=== PATIENT | female | born 1995 | race Caucasian/White ===

== ENCOUNTER 2016-05-27 22:11 | Emergency (ER) | payer OTHER ==
[2016-05-27] MEDS ORDERED: METOCLOPRAMIDE INJ 10MG/2ML VIAL (J2765) As Ordered ONE (23:27)
[2016-05-27 23:35] LABS: BASO # 0.1 K/mm3 (0.0-0.2); BASO % 0.5 % (0.0-1.0); EOS % 0.4 % (0.0-3.0); LARGE UNSTAINED CELL # 0.1 K/mm3 (0.0-0.4); LARGE UNSTAINED CELL % 0.8 % (0.0-4.0); LYMPH # 1.5 K/mm3 (1.5-6.5); LYMPH % 11.2 % (24.0-44.0); MEAN CORPUSCULAR HEMOGLOBIN 30.2 pg (27.0-33.0); MEAN CORPUSCULAR HGB CONC 34.9 g/dl (32.0-36.5); MEAN CORPUSCULAR VOLUME 86.4 fl (80.0-96.0); MONO # 0.3 K/mm3 (0.0-0.8); MONO % 2.5 % (0.0-5.0); NEUTROPHILS # 10.5 K/mm3 (1.8-7.7); NEUTROPHILS % 84.6 % (36.0-66.0); PLATELET COUNT, AUTOMATED 257 k/mm3 (150-450); RED CELL DISTRIBUTION WIDTH 12.5 % (11.5-14.5); WHITE BLOOD COUNT 12.4 K/mm3 (4.0-10.0)
[2016-05-28] LABS: ANION GAP 10 MEQ/L (8-16); BLOOD UREA NITROGEN 8 MG/DL (7-18); CARBON DIOXIDE LEVEL 23 MEQ/L (21-32); CHLORIDE LEVEL 107 MEQ/L (98-107); CREATININE FOR GFR 0.51 MG/DL (0.55-1.02); GLOMERULAR FILTRATION RATE > 60.0 (>60); GLUCOSE, FASTING 105 MG/DL (70-105); POTASSIUM SERUM 3.8 MEQ/L (3.5-5.1); SODIUM LEVEL 140 MEQ/L (136-145)
--- NOTE | 2016-05-28 01:19 | EDDOCDS ---
Nurse's Notes [facility] Name: Effie Knox Age: 20 yrs Sex: Female : 1995 Arrival Date: 05/27/2016 Time: 22:11 Bed I6 / 28 Private MD: NO PRIMARY PHYSICIAN, . Diagnosis: Headache;Vomiting of , unspecified Presentation: 05/27 22:14 Presenting complaint: Patient states: she has had a headache since 1900 tonight pt cz denies history of same. headache causing nausea and vomiting. pt is 12 weeks . This patient has no additional risk factors. Adult Sepsis Screening: The patient does not have new or worsening altered mentation. Patient's respiratory rate is less than 22. Systolic blood pressure is greater than 100. Patient has a qSOFA score of 0- Negative Sepsis Screen. Suicide/Homicide risk assessment- the patient denies having any suicidal and/or homicidal ideations and does not present with any other emotional, behavioral or mental health complaints. Status: The patient is a dependent. Transition of care: patient was not received from another setting of care. 22:14 Acuity: YOLANDA Level 3 cz 22:14 Method Of Arrival: Walkin/Carried/Asstd cz Triage Assessment: 22:16 Headache History: This patient does not have a history of previous headaches. General: cz Appears uncomfortable. Pain: Pain currently is 9 out of 10 on a pain scale. Pt Declines HIV testing. 22:18 Pain: Pain began 3 hours ago Also complains of nausea, vomiting. cz DENTAL SERVICE CHIEF: 22:16 LMP 03/03/2016, Verified, EDC 12/08/2016, Gestational age from LMP: 12 weeks 2 cz days Historical: - Allergies: No known drug Allergies; - Home Meds: 1. none - PMHx: none; - PSHx: wisdom teeth extraction; - Social history: Smoking status: Patient states was never smoker of tobacco. No barriers to communication noted, The patient speaks fluent Bhutanese, Speaks appropriately for age. - Family history: Not pertinent. - : The pt / caregiver states he / she is not on anticoagulants. Home medication list is obtained from the patient. - Exposure Risk Screening:: None identified. Screenin/04 01:17 Screening information is obtained from the patient. Fall risk: No risks identified. ead Assistance ADL's: requires no assistance with activities of daily living. Abuse/DV Screen: The patient / caregiver reports he/she is: not in a situation that causes fear, pain or injury. Nutritional screening: No deficits noted. Advance Directives: Currently, there is no health care proxy. There is no Power of Medication Technician. home support is adequate. Assessment: 05/27 23:30 General: Appears in no apparent distress, comfortable, Behavior is appropriate for age, ead cooperative. Pain: Location: face and scalp Pain currently is 4 out of 10 on a pain scale. At worst was 9 out of 10 on a pain scale. Neurological: Level of Consciousness is awake, alert, Oriented to person, place, time, Reports headache. Respiratory: Airway is patent Respiratory effort is even, unlabored. GI: Abdomen is non- distended Reports nausea, vomiting. Derm: Skin is pink, warm & dry. 05/28 00:36 General: Pt returned from ultrasound, IV fluids infusing. . ead 01:18 General: Appears in no apparent distress, comfortable, Behavior is appropriate for age, ead cooperative. Neurological: No deficits noted. Respiratory: Airway is patent Respiratory effort is even, unlabored, Respiratory pattern is regular, symmetrical. GI: Reports tolerance of fluids, Denies nausea, vomiting, pain. Derm: Skin is pink, warm & dry. Vital Signs: 05/27 22:12 BP 114 / 68; Pulse 85; Resp 18 S; Temp 96.9(O); Pulse Ox 98% on R/A; Weight 70.76 kg gr2 (R); Height 5 ft. 4 in. (162.56 cm) (R); Pain 6/10; 05/28 01:17 BP 109 / 58; Pulse 76; Resp 16; Temp 97.8(O); Pulse Ox 100% on R/A; Pain 0/10; ead 05/27 22:12 Body Mass Index 26.78 (70.76 kg, 162.56 cm) gr2 Vitals: 05/27 22:12 Log In Time: May 27, 2016 at 22:12. gr2 23:45 Heart Tones Unable to obtain Note pt states she is 10 weeks . unable to ead obtain heart tones. provider notified, order for ultrasound received. ED Course: 22:12 Patient visited by Morena Wilson. gr2 22:12 NO PRIMARY PHYSICIAN, . is Private Physician. gr2 22:12 Patient moved to Waiting gr2 22:13 Patient visited by Morena Wilson. gr2 22:13 Patient moved to Pre RCE gr2 22:16 Triage Initiated cz 22:50 Patient moved to Triage 1 ar3 23:01 Krishna Sales RPA-C is PHCP. ck7 23:02 Romario Lemus MD is Attending Physician. ck7 23:02 Patient visited by Krishna Sales RPA-C. ck7 23:06 Patient moved to I lf1 23:30 Inserted peripheral IV: 20gauge IV in right antecubital area and blood collected. ead Patient tolerated the procedure well. initiated by Laila Joseph RN. 23:34 UA Sent. ead 23:34 MED Profile Sent. ead 23:34 CBC with Diff Sent. ead 23:42 Patient visited by Krishna Sales RPA-C. ck7 23:45 The patient / caregiver is instructed regarding the plan of care and ED course. Patient ead has correct armband on for positive identification. Placed in gown. Bed in low position. Call light in reach. Side rails up X 1. 05/28 00:11 [facility] Payment Agreement was scanned into [employer] and attached to record. jp5 00:13 Patient visited by Krishna Sales RPA-C. ck7 00:22 Patient name changed from Effie\S\\S\Abilio\S\ to Effie\S\Yue\S\Abilio. EDMS 00:25 Patient moved to Ultrasound dmg 00:36 Patient moved to I ead 00:51 Patient visited by Krishna Sales RPA-C. ck7 00:58 Vasile Gomez MD is Referral Physician. ck7 01:17 Discontinued IV intact, bleeding controlled, pressure dressing applied, No ead redness/swelling at site. No procedures done that require assistance. Administered Medications: 05/27 23:34 Drug: NS 0.9% 1000 ml [sodium chloride 0.9 % injection solution] Route: IV; Rate: ead bolus; Site: right antecubital; 05/28 01:00 Follow up: IV Status: Completed infusion; IV Intake: 1000ml ead 05/27 23:34 Drug: Metoclopramide 10 mg [metoclopramide 5 mg/mL injection solution] Route: IV; Rate: ead 40 mg/hr; Infused Over: 15 mins; Site: right antecubital; 23:58 Follow up: Response: No Adverse Reaction; Pain is decreased; IV Status: Completed ead infusion Intake: 05/28 01:00 IV: 1000.00ml; Total: 1000.00ml. ead Order Results: Lab Order: CBC with Diff; SPEC'M 05/27/16 23:25 Test: WHITE BLOOD COUNT; Value: 12.4; Range: 4.0-10.0; Abnormal: Above high normal; Units: K/mm3; Status: F Test: RED BLOOD COUNT; Value: 4.51; Range: 4.00-5.40; Units: M/mm3; Status: F Test: HEMOGLOBIN; Value: 13.6; Range: 12.0-16.0; Units: g/dl; Status: F Test: HEMATOCRIT; Value: 38.9; Range: 36.0-47.0; Units: %; Status: F Test: MEAN CORPUSCULAR VOLUME; Value: 86.4; Range: 80.0-96.0; Units: fl; Status: F Test: MEAN CORPUSCULAR HEMOGLOBIN; Value: 30.2; Range: 27.0-33.0; Units: pg; Status: F Test: MEAN CORPUSCULAR HGB CONC; Value: 34.9; Range: 32.0-36.5; Units: g/dl; Status: F Test: RED CELL DISTRIBUTION WIDTH; Value: 12.5; Range: 11.5-14.5; Units: %; Status: F Test: PLATELET COUNT, AUTOMATED; Value: 257; Range: 150-450; Units: k/mm3; Status: F Test: NEUTROPHILS %; Value: 84.6; Range: 36.0-66.0; Abnormal: Above high normal; Units: %; Status: F Test: LYMPH %; Value: 11.2; Range: 24.0-44.0; Abnormal: Below low normal; Units: %; Status: F Test: MONO %; Value: 2.5; Range: 0.0-5.0; Units: %; Status: F Test: EOS %; Value: 0.4; Range: 0.0-3.0; Units: %; Status: F Test: BASO %; Value: 0.5; Range: 0.0-1.0; Units: %; Status: F Test: LARGE UNSTAINED CELL %; Value: 0.8; Range: 0.0-4.0; Units: %; Status: F Test: NEUTROPHILS #; Value: 10.5; Range: 1.8-7.7; Abnormal: Above high normal; Units: K/mm3; Status: F Test: LYMPH #; Value: 1.5; Range: 1.5-6.5; Units: K/mm3; Status: F Test: MONO #; Value: 0.3; Range: 0.0-0.8; Units: K/mm3; Status: F Test: EOS #; Value: 0.0; Range: 0.0-0.50; Units: K/mm3; Status: F Test: BASO #; Value: 0.1; Range: 0.0-0.2; Units: K/mm3; Status: F Test: LARGE UNSTAINED CELL #; Value: 0.1; Range: 0.0-0.4; Units: K/mm3; Status: F Lab Order: [facility]; [facility] 05/27/16 23:25 Test: GLUCOSE, FASTING; Value: 105; Range: 70-105; Units: MG/DL; Status: F Test: BLOOD UREA NITROGEN; Value: 8; Range: 7-18; Units: MG/DL; Status: F Test: CREATININE FOR GFR; Value: 0.51; Range: 0.55-1.02; Abnormal: Below low normal; Units: MG/DL; Status: F Test: GLOMERULAR FILTRATION RATE; Value: > 60.0; Range: >60; Status: F Test: SODIUM LEVEL; Value: 140; Range: 136-145; Units: MEQ/L; Status: F Test: POTASSIUM SERUM; Value: 3.8; Range: 3.5-5.1; Units: MEQ/L; Status: F Test: CHLORIDE LEVEL; Value: 107; Range: 98-107; Units: MEQ/L; Status: F Test: CARBON DIOXIDE LEVEL; Value: 23; Range: 21-32; Units: MEQ/L; Status: F Test: ANION GAP; Value: 10; Range: 8-16; Units: MEQ/L; Status: F Test: CALCIUM LEVEL; Value: 9.0; Range: 8.5-10.1; Units: MG/DL; Status: F Test Note: ; Units are mL/min/1.73 m2 Chronic Kidney Disease Staging per NKF: Stage I & II GFR >=60 Normal to Mildly Decreased Stage III GFR 30-59 Moderately Decreased Stage IV GFR 15-29 Severely Decreased Stage V GFR <15 Very Little GFR Left ESRD GFR <15 on DAY CARE ATTENDANT Lab Order: UA; SPEC'M 05/27/16 23:25 Test: APPEARANCE, URINE; Value: HAZY; Range: CLEAR; Status: F Test: COLOR, URINE; Value: YELLOW; Range: YELLOW; Status: F Test: PH,URINE; Value: 6.0; Range: 5.0-9.0; Units: UNITS; Status: F Test: SPECIFIC GRAVITY URINE AUTO; Value: 1.009; Range: 1.002-1.035; Status: F Test: PROTEIN, URINE AUTO; Value: NEGATIVE; Range: NEGATIVE; Units: mg/dL; Status: F Test: GLUCOSE, URINE (UA) AUTO; Value: NEGATIVE; Range: NEGATIVE; Units: mg/dL; Status: F Test: KETONE, URINE AUTO; Value: 1+; Range: NEGATIVE; Abnormal: Above high normal; Units: mg/dL; Status: F Test: UROBILINOGEN, URINE AUTO; Value: 0.2; Range: 0.0-2.0; Units: mg/dL; Status: F Test: BILIRUBIN, URINE AUTO; Value: NEGATIVE; Range: NEGATIVE; Status: F Test: NITRITE, URINE AUTO; Value: NEGATIVE; Range: NEGATIVE; Status: F Test: LEUKOCYTE ESTERASE, URINE AUTO; Value: 1+; Range: NEGATIVE; Abnormal: Above high normal; Status: F Test: BLOOD, URINE BLOOD; Value: NEGATIVE; Range: NEGATIVE; Status: F Test: WBC, URINE AUTO; Value: 3; Range: 0-3; Units: /HPF; Status: F Test: RBC, URINE AUTO; Value: 3; Range: 0-3; Units: /HPF; Status: F Test: BACTERIA, URINE AUTO; Value: 1+; Range: NEGATIVE; Abnormal: Above high normal; Status: F Test: SQUAMOUS EPITHELIAL CELL UR AU; Value: 7; Range: 0-6; Units: /HPF; Status: F Test: MUCUS, URINE; Value: SMALL; Range: NEGATIVE; Status: F Test: HYALINE CAST, URINE AUTO; Value: 0; Range: 0-1; Units: /LPF; Status: F Outcome: 00:58 Discharge ordered by Provider. ck7 01:19 Patient left the ED. robert Signatures: Dispatcher [employer] EDMS Quan Jaramillo RN RN Paz Goodwin LisaRN RN lf1 Tona Méndez, INSTRUMENT AND CONTROLS TECHNICIAN INSTRUMENT AND CONTROLS TECHNICIAN ar3 Krishna Sales, RPA-C RPA-Cck7 Morena Wilson gr2 [place] SongRN RN Wale Arreola jp5 Corrections: (The following items were deleted from the chart) 05/27 22:19 22:14 Presenting complaint: Patient states: she has had a headache since 1900 tonight cz pt denies history of same. headache causing nausea and vomiting cz 22:20 22:14 Presenting complaint: Patient states: she has had a headache since 1900 tonight cz pt denies history of same. headache causing nausea and vomiting. pt is cz MTDD
--- NOTE | 2016-05-28 01:19 | EDDOCDS ---
Physician Documentation [facility] Name: Effie Knox Age: 20 yrs Sex: Female : 1995 Arrival Date: 05/27/2016 Time: 22:11 Bed I6 Private MD: NO PRIMARY PHYSICIAN, . Disposition: 05/28/16 00:58 Discharged to Home/Self Care. Impression: Headache, Vomiting of , unspecified. - Condition is Stable. - Discharge Instructions: General Headache Without Cause, Hyperemesis Gravidarum. - Prescriptions for Reglan 10 mg Oral Tablet - take 1 tablet by ORAL route every 6 hours take 30 minutes before meals and at bedtime; 20 tablet. - Medication Reconciliation, Local Pharmacy Hours form. - Follow up: Vasile Gomez MD; When: Tomorrow; Reason: Recheck today's complaints, Continuance of care. - Problem is new. - Symptoms have improved. - Notes: USE REGLAN INSTRUCTED, FOLLOW UP WITH YOUR DOCTOR TOMORROW, RETURN TO THE ER IF THE SYMPTOMS WORSEN OR BECOME CONCERNING, YOU MAY ALSO USE TYLENOL FOR PAIN CONTROL Historical: - Allergies: No known drug Allergies; - Home Meds: 1. none - PMHx: none; - PSHx: wisdom teeth extraction; - Social history: Smoking status: Patient states was never smoker of tobacco. No barriers to communication noted, The patient speaks fluent Czech, Speaks appropriately for age. - Family history: Not pertinent. - : The pt / caregiver states he / she is not on anticoagulants. Home medication list is obtained from the patient. - Exposure Risk Screening:: None identified. RELATIONS MGR: 05/27 22:16 LMP 03/03/2016, Verified, EDC 12/08/2016, Gestational age from LMP: 12 weeks 2 cz days Vital Signs: 22:12 BP 114 / 68; Pulse 85; Resp 18 S; Temp 96.9(O); Pulse Ox 98% on R/A; Weight 70.76 kg / gr2 156 lbs (R); Height 5 ft. 4 in. (162.56 cm) (R); Pain 6/10; 05/28 01:17 BP 109 / 58; Pulse 76; Resp 16; Temp 97.8(O); Pulse Ox 100% on R/A; Pain 0/10; ead 05/27 22:12 Body Mass Index 26.78 (70.76 kg, 162.56 cm) gr2 MDM: 05/27 23:05 Heart Tones ordered. ck7 23:05 IV Saline Lock ordered. ck7 23:05 NS 0.9% 1000 ml IV at bolus once ordered. ck7 23:05 Metoclopramide 10 mg IV at 40 mg/hr once over 15 mins ordered. ck7 23:06 CBC with Diff Ordered. EDMS 23:06 MED Profile Ordered. EDMS 23:06 UA Ordered. EDMS 23:42 CBC with Diff Reviewed. ck7 23:43 US 1st trimester Ordered. EDMS 05/28 00:11 [facility] Payment Agreement was scanned into [employer] and attached to record. jp5 00:11 Financial registration complete. jp5 00:20 MED Profile Reviewed. ck7 00:20 UA Reviewed. ck7 Administered Medications: 05/27 23:34 Drug: NS 0.9% 1000 ml [sodium chloride 0.9 % injection solution] Route: IV; Rate: ead bolus; Site: right antecubital; 05/28 01:00 Follow up: IV Status: Completed infusion; IV Intake: 1000ml ead 05/27 23:34 Drug: Metoclopramide 10 mg [metoclopramide 5 mg/mL injection solution] Route: IV; Rate: ead 40 mg/hr; Infused Over: 15 mins; Site: right antecubital; 23:58 Follow up: Response: No Adverse Reaction; Pain is decreased; IV Status: Completed ead infusion Signatures: Dispatcher [employer] EDAL Quan Jaramillo RN RN cz Kwaczala, Christopher, RPA-C RPA-Cck7 [place] SongRN Wale Chowdary jp5 The chart was reviewed and I authenticate all verbal orders and agree with the evaluation and treatment provided.Attachments: 05/28 00:11 [facility] Payment Agreement jp5 MTDD
--- NOTE | 2016-05-28 02:10 | REPUSA ---
CLINICAL HISTORY: determination. TECHNIQUE: Transabdominal ultrasound of the pelvis was performed. FINDINGS: Single, live intrauterine gestation. The estimated gestation age is 11 weeks and 6 days. [place]-rump length measures 5.1 mm. heart rate 163 beats a minute. No maternal adnexal pathology. IMPRESSION: Single, live intrauterine gestation. No abnormality.
--- NOTE | 2016-05-30 02:20 | EDDOCDS ---
Nurse's Notes [facility] Name: Effie Knox Age: 20 yrs Sex: Female : 1995 Arrival Date: 05/27/2016 Time: 22:11 Bed I6 / 28 Private MD: NO PRIMARY PHYSICIAN, . Diagnosis: Headache;Vomiting of , unspecified Presentation: 05/27 22:14 Presenting complaint: Patient states: she has had a headache since 1900 tonight pt cz denies history of same. headache causing nausea and vomiting. pt is 12 weeks . This patient has no additional risk factors. Adult Sepsis Screening: The patient does not have new or worsening altered mentation. Patient's respiratory rate is less than 22. Systolic blood pressure is greater than 100. Patient has a qSOFA score of 0- Negative Sepsis Screen. Suicide/Homicide risk assessment- the patient denies having any suicidal and/or homicidal ideations and does not present with any other emotional, behavioral or mental health complaints. Status: The patient is a dependent. Transition of care: patient was not received from another setting of care. 22:14 Acuity: YOLANDA Level 3 cz 22:14 Method Of Arrival: Walkin/Carried/Asstd cz Triage Assessment: 22:16 Headache History: This patient does not have a history of previous headaches. General: cz Appears uncomfortable. Pain: Pain currently is 9 out of 10 on a pain scale. Pt Declines HIV testing. 22:18 Pain: Pain began 3 hours ago Also complains of nausea, vomiting. 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 none - PMHx: none; - PSHx: wisdom teeth extraction; - Social history: Smoking status: Patient states was never smoker of tobacco. No barriers to communication noted, The patient speaks fluent Cuban, Speaks appropriately for age. - Family history: Not pertinent. - : The pt / caregiver states he / she is not on anticoagulants. Home medication list is obtained from the patient. - Exposure Risk Screening:: None identified. Screenin/04 01:17 Screening information is obtained from the patient. Fall risk: No risks identified. ead Assistance ADL's: requires no assistance with activities of daily living. Abuse/DV Screen: The patient / caregiver reports he/she is: not in a situation that causes fear, pain or injury. Nutritional screening: No deficits noted. Advance Directives: Currently, there is no health care proxy. There is no Power of Long Term Care Administrator. home support is adequate. Assessment: 05/27 23:30 General: Appears in no apparent distress, comfortable, Behavior is appropriate for age, ead cooperative. Pain: Location: face and scalp Pain currently is 4 out of 10 on a pain scale. At worst was 9 out of 10 on a pain scale. Neurological: Level of Consciousness is awake, alert, Oriented to person, place, time, Reports headache. Respiratory: Airway is patent Respiratory effort is even, unlabored. GI: Abdomen is non- distended Reports nausea, vomiting. Derm: Skin is pink, warm & dry. 05/28 00:36 General: Pt returned from ultrasound, IV fluids infusing. . ead 01:18 General: Appears in no apparent distress, comfortable, Behavior is appropriate for age, ead cooperative. Neurological: No deficits noted. Respiratory: Airway is patent Respiratory effort is even, unlabored, Respiratory pattern is regular, symmetrical. GI: Reports tolerance of fluids, Denies nausea, vomiting, pain. Derm: Skin is pink, warm & dry. Vital Signs: 05/27 22:12 BP 114 / 68; Pulse 85; Resp 18 S; Temp 96.9(O); Pulse Ox 98% on R/A; Weight 70.76 kg gr2 (R); Height 5 ft. 4 in. (162.56 cm) (R); Pain 6/10; 05/28 01:17 BP 109 / 58; Pulse 76; Resp 16; Temp 97.8(O); Pulse Ox 100% on R/A; Pain 0/10; ead 05/27 22:12 Body Mass Index 26.78 (70.76 kg, 162.56 cm) gr2 Vitals: 05/27 22:12 Log In Time: May 27, 2016 at 22:12. gr2 23:45 Heart Tones Unable to obtain Note pt states she is 10 weeks . unable to ead obtain heart tones. provider notified, order for ultrasound received. ED Course: 22:12 Patient visited by Morena Wilson. gr2 22:12 NO PRIMARY PHYSICIAN, . is Private Physician. gr2 22:12 Patient moved to Waiting gr2 22:13 Patient visited by Morena Wilson. gr2 22:13 Patient moved to Pre RCE gr2 22:16 Triage Initiated cz 22:50 Patient moved to Triage 1 ar3 23:01 Krishna Sales RPA-C is PHCP. ck7 23:02 Romario Lemus MD is Attending Physician. ck7 23:02 Patient visited by Krishna Sales RPA-C. ck7 23:06 Patient moved to lf1 23:30 Inserted peripheral IV: 20gauge IV in right antecubital area and blood collected. ead Patient tolerated the procedure well. initiated by Laila Joseph RN. 23:34 UA Sent. ead 23:34 MED Profile Sent. ead 23:34 CBC with Diff Sent. ead 23:42 Patient visited by Krishna Sales RPA-C. ck7 23:45 The patient / caregiver is instructed regarding the plan of care and ED course. Patient ead has correct armband on for positive identification. Placed in gown. Bed in low position. Call light in reach. Side rails up X 1. 05/28 00:11 [facility] Payment Agreement was scanned into [employer] and attached to record. jp5 00:13 Patient visited by Krishan Sales RPA-C. ck7 00:22 Patient name changed from Effie\S\\S\Abilio\S\ to Effie\S\Yue\S\Abilio. EDMS 00:25 Patient moved to Ultrasound dmg 00:36 Patient moved to ead 00:51 Patient visited by Krishna Sales RPA-C. ck7 00:58 Vasile Gomez MD is Referral Physician. ck7 01:17 Discontinued IV intact, bleeding controlled, pressure dressing applied, No ead redness/swelling at site. No procedures done that require assistance. 02:39 US 1st trimester Returned. EDMS 11:05 T-Sheet-- Draft Copy was scanned into [employer] and attached to record. gb Administered Medications: 05/27 23:34 Drug: NS 0.9% 1000 ml [sodium chloride 0.9 % injection solution] Route: IV; Rate: ead bolus; Site: right antecubital; 05/28 01:00 Follow up: IV Status: Completed infusion; IV Intake: 1000ml ead 05/27 23:34 Drug: Metoclopramide 10 mg [metoclopramide 5 mg/mL injection solution] Route: IV; Rate: ead 40 mg/hr; Infused Over: 15 mins; Site: right antecubital; 23:58 Follow up: Response: No Adverse Reaction; Pain is decreased; IV Status: Completed ead infusion Intake: 05/28 01:00 IV: 1000.00ml; Total: 1000.00ml. ead Order Results: Lab Order: CBC with Diff; SPEC'M 05/27/16 23:25 Test: WHITE BLOOD COUNT; Value: 12.4; Range: 4.0-10.0; Abnormal: Above high normal; Units: K/mm3; Status: F Test: RED BLOOD COUNT; Value: 4.51; Range: 4.00-5.40; Units: M/mm3; Status: F Test: HEMOGLOBIN; Value: 13.6; Range: 12.0-16.0; Units: g/dl; Status: F Test: HEMATOCRIT; Value: 38.9; Range: 36.0-47.0; Units: %; Status: F Test: MEAN CORPUSCULAR VOLUME; Value: 86.4; Range: 80.0-96.0; Units: fl; Status: F Test: MEAN CORPUSCULAR HEMOGLOBIN; Value: 30.2; Range: 27.0-33.0; Units: pg; Status: F Test: MEAN CORPUSCULAR HGB CONC; Value: 34.9; Range: 32.0-36.5; Units: g/dl; Status: F Test: RED CELL DISTRIBUTION WIDTH; Value: 12.5; Range: 11.5-14.5; Units: %; Status: F Test: PLATELET COUNT, AUTOMATED; Value: 257; Range: 150-450; Units: k/mm3; Status: F Test: NEUTROPHILS %; Value: 84.6; Range: 36.0-66.0; Abnormal: Above high normal; Units: %; Status: F Test: LYMPH %; Value: 11.2; Range: 24.0-44.0; Abnormal: Below low normal; Units: %; Status: F Test: MONO %; Value: 2.5; Range: 0.0-5.0; Units: %; Status: F Test: EOS %; Value: 0.4; Range: 0.0-3.0; Units: %; Status: F Test: BASO %; Value: 0.5; Range: 0.0-1.0; Units: %; Status: F Test: LARGE UNSTAINED CELL %; Value: 0.8; Range: 0.0-4.0; Units: %; Status: F Test: NEUTROPHILS #; Value: 10.5; Range: 1.8-7.7; Abnormal: Above high normal; Units: K/mm3; Status: F Test: LYMPH #; Value: 1.5; Range: 1.5-6.5; Units: K/mm3; Status: F Test: MONO #; Value: 0.3; Range: 0.0-0.8; Units: K/mm3; Status: F Test: EOS #; Value: 0.0; Range: 0.0-0.50; Units: K/mm3; Status: F Test: BASO #; Value: 0.1; Range: 0.0-0.2; Units: K/mm3; Status: F Test: LARGE UNSTAINED CELL #; Value: 0.1; Range: 0.0-0.4; Units: K/mm3; Status: F Lab Order: MED Profile; SPEC'M 05/27/16 23:25 Test: GLUCOSE, FASTING; Value: 105; Range: 70-105; Units: MG/DL; Status: F Test: BLOOD UREA NITROGEN; Value: 8; Range: 7-18; Units: MG/DL; Status: F Test: CREATININE FOR GFR; Value: 0.51; Range: 0.55-1.02; Abnormal: Below low normal; Units: MG/DL; Status: F Test: GLOMERULAR FILTRATION RATE; Value: > 60.0; Range: >60; Status: F Test: SODIUM LEVEL; Value: 140; Range: 136-145; Units: MEQ/L; Status: F Test: POTASSIUM SERUM; Value: 3.8; Range: 3.5-5.1; Units: MEQ/L; Status: F Test: CHLORIDE LEVEL; Value: 107; Range: 98-107; Units: MEQ/L; Status: F Test: CARBON DIOXIDE LEVEL; Value: 23; Range: 21-32; Units: MEQ/L; Status: F Test: ANION GAP; Value: 10; Range: 8-16; Units: MEQ/L; Status: F Test: CALCIUM LEVEL; Value: 9.0; Range: 8.5-10.1; Units: MG/DL; Status: F Test Note: ; Units are mL/min/1.73 m2 Chronic Kidney Disease Staging per NKF: Stage I & II GFR >=60 Normal to Mildly Decreased Stage III GFR 30-59 Moderately Decreased Stage IV GFR 15-29 Severely Decreased Stage V GFR <15 Very Little GFR Left ESRD GFR <15 on SCIENTIST IMMUNOLOGY Lab Order: UA; SPEC'M 05/27/16 23:25 Test: APPEARANCE, URINE; Value: HAZY; Range: CLEAR; Status: F Test: COLOR, URINE; Value: YELLOW; Range: YELLOW; Status: F Test: PH,URINE; Value: 6.0; Range: 5.0-9.0; Units: UNITS; Status: F Test: SPECIFIC GRAVITY URINE AUTO; Value: 1.009; Range: 1.002-1.035; Status: F Test: PROTEIN, URINE AUTO; Value: NEGATIVE; Range: NEGATIVE; Units: mg/dL; Status: F Test: GLUCOSE, URINE (UA) AUTO; Value: NEGATIVE; Range: NEGATIVE; Units: mg/dL; Status: F Test: KETONE, URINE AUTO; Value: 1+; Range: NEGATIVE; Abnormal: Above high normal; Units: mg/dL; Status: F Test: UROBILINOGEN, URINE AUTO; Value: 0.2; Range: 0.0-2.0; Units: mg/dL; Status: F Test: BILIRUBIN, URINE AUTO; Value: NEGATIVE; Range: NEGATIVE; Status: F Test: NITRITE, URINE AUTO; Value: NEGATIVE; Range: NEGATIVE; Status: F Test: LEUKOCYTE ESTERASE, URINE AUTO; Value: 1+; Range: NEGATIVE; Abnormal: Above high normal; Status: F Test: BLOOD, URINE BLOOD; Value: NEGATIVE; Range: NEGATIVE; Status: F Test: WBC, URINE AUTO; Value: 3; Range: 0-3; Units: /HPF; Status: F Test: RBC, URINE AUTO; Value: 3; Range: 0-3; Units: /HPF; Status: F Test: BACTERIA, URINE AUTO; Value: 1+; Range: NEGATIVE; Abnormal: Above high normal; Status: F Test: SQUAMOUS EPITHELIAL CELL UR AU; Value: 7; Range: 0-6; Units: /HPF; Status: F Test: MUCUS, URINE; Value: SMALL; Range: NEGATIVE; Status: F Test: HYALINE CAST, URINE AUTO; Value: 0; Range: 0-1; Units: /LPF; Status: F Radiology Order: US 1st trimester Test: US 1st trimester REASON FOR EXAMINATION: R/O DEMISE; ; CLINICAL HISTORY: determination.; TECHNIQUE: Transabdominal ultrasound of the pelvis was performed.; FINDINGS:; Single, live intrauterine gestation.; The estimated gestation age is 11 weeks and 6 days.; Kopperl-rump length measures 5.1 mm.; heart rate 163 beats a minute.; No maternal adnexal pathology.; IMPRESSION:; Single, live intrauterine gestation. No abnormality.; ; Outcome: 00:58 Discharge ordered by Provider. ck7 01:19 Patient left the ED. ead Signatures: Dispatcher [employer] EDMS Quan Jaramillo, RN RN Paz Goodwin Gloria, Umberto Reg Harriett ElamRN RN lf1 Tona Méndez, FACILITIES OPERATIONS TECHNICIAN FACILITIES OPERATIONS TECHNICIAN ar3 Krishna Sales, RPA-C RPA-Cck7 Morena Wislon2 India Song,RN RN Wale Arreola jp5 Corrections: (The following items were deleted from the chart) 05/27 22:19 22:14 Presenting complaint: Patient states: she has had a headache since 1900 tonight cz pt denies history of same. headache causing nausea and vomiting cz 22:20 22:14 Presenting complaint: Patient states: she has had a headache since 1900 tonight cz pt denies history of same. headache causing nausea and vomiting. pt is cz Chart Complete MTDD
--- NOTE | 2016-05-30 02:20 | EDDOCDS ---
Physician Documentation [facility] Name: Effie Knox Age: 20 yrs Sex: Female : 1995 Arrival Date: 05/27/2016 Time: 22:11 Bed I6 Private MD: NO PRIMARY PHYSICIAN, . Disposition: 05/28/16 00:58 Discharged to Home/Self Care. Impression: Headache, Vomiting of , unspecified. - Condition is Stable. - Discharge Instructions: General Headache Without Cause, Hyperemesis Gravidarum. - Prescriptions for Reglan 10 mg Oral Tablet - take 1 tablet by ORAL route every 6 hours take 30 minutes before meals and at bedtime; 20 tablet. - Medication Reconciliation, Local Pharmacy Hours form. - Follow up: Vasile Gomez MD; When: Tomorrow; Reason: Recheck today's complaints, Continuance of care. - Problem is new. - Symptoms have improved. - Notes: USE REGLAN INSTRUCTED, FOLLOW UP WITH YOUR DOCTOR TOMORROW, RETURN TO THE ER IF THE SYMPTOMS WORSEN OR BECOME CONCERNING, YOU MAY ALSO USE TYLENOL FOR PAIN CONTROL Historical: - Allergies: No known drug Allergies; - Home Meds: 1. none - PMHx: none; - PSHx: wisdom teeth extraction; - Social history: Smoking status: Patient states was never smoker of tobacco. No barriers to communication noted, The patient speaks fluent Romansh, Speaks appropriately for age. - Family history: Not pertinent. - : The pt / caregiver states he / she is not on anticoagulants. Home medication list is obtained from the patient. - Exposure Risk Screening:: None identified. 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 4 in. (162.56 cm) (R); Pain 6/10; 05/28 01:17 BP 109 / 58; Pulse 76; Resp 16; Temp 97.8(O); Pulse Ox 100% on R/A; Pain 0/10; ead 05/27 22:12 Body Mass Index 26.78 (70.76 kg, 162.56 cm) gr2 MDM: 05/27 23:05 Heart Tones ordered. ck7 23:05 IV Saline Lock ordered. ck7 23:05 NS 0.9% 1000 ml IV at bolus once ordered. ck7 23:05 Metoclopramide 10 mg IV at 40 mg/hr once over 15 mins ordered. ck7 23:06 CBC with Diff Ordered. EDMS 23:06 MED Profile Ordered. EDMS 23:06 UA Ordered. EDMS 23:42 CBC with Diff Reviewed. ck7 23:43 US 1st trimester Ordered. EDMS 05/28 00:11 [facility] Payment Agreement was scanned into [employer] and attached to record. jp 00:11 Financial registration complete. jp5 00:20 MED Profile Reviewed. ck7 00:20 UA Reviewed. ck7 11: T-Sheet-- Draft Copy was scanned into [employer] and attached to record. gb Administered Medications: 05/27 23:34 Drug: NS 0.9% 1000 ml [sodium chloride 0.9 % injection solution] Route: IV; Rate: ead bolus; Site: right antecubital; 05/28 01:00 Follow up: IV Status: Completed infusion; IV Intake: 1000ml ead 05/27 23:34 Drug: Metoclopramide 10 mg [metoclopramide 5 mg/mL injection solution] Route: IV; Rate: ead 40 mg/hr; Infused Over: 15 mins; Site: right antecubital; 23:58 Follow up: Response: No Adverse Reaction; Pain is decreased; IV Status: Completed ead infusion Signatures: Dispatcher [employer] Quan Liriano, RN RN Zayda Benites, Reg Reg gb Krishna Sales, RPA-C RPA-Cck7 India SongRN Wale Chowdary jp5 The chart was reviewed and I authenticate all verbal orders and agree with the evaluation and treatment provided.Attachments: 05/28 00:11 [facility] Payment Agreement jp5 11:05 T-Sheet-- Draft Copy gb Chart Complete MTDD
--- NOTE | 2016-05-30 02:20 | EDDOCDS ---
Physician Documentation [facility] Name: Effie Knox Age: 20 yrs Sex: Female : 1995 Arrival Date: 05/27/2016 Time: 22:11 Bed I6 Private MD: NO PRIMARY PHYSICIAN, . Disposition: 05/28/16 00:58 Discharged to Home/Self Care. Impression: Headache, Vomiting of , unspecified. - Condition is Stable. - Discharge Instructions: General Headache Without Cause, Hyperemesis Gravidarum. - Prescriptions for Reglan 10 mg Oral Tablet - take 1 tablet by ORAL route every 6 hours take 30 minutes before meals and at bedtime; 20 tablet. - Medication Reconciliation, Local Pharmacy Hours form. - Follow up: Vasile Gomez MD; When: Tomorrow; Reason: Recheck today's complaints, Continuance of care. - Problem is new. - Symptoms have improved. - Notes: USE REGLAN INSTRUCTED, FOLLOW UP WITH YOUR DOCTOR TOMORROW, RETURN TO THE ER IF THE SYMPTOMS WORSEN OR BECOME CONCERNING, YOU MAY ALSO USE TYLENOL FOR PAIN CONTROL Historical: - Allergies: No known drug Allergies; - Home Meds: 1. none - PMHx: none; - PSHx: wisdom teeth extraction; - Social history: Smoking status: Patient states was never smoker of tobacco. No barriers to communication noted, The patient speaks fluent Vietnamese, Speaks appropriately for age. - Family history: Not pertinent. - : The pt / caregiver states he / she is not on anticoagulants. Home medication list is obtained from the patient. - Exposure Risk Screening:: None identified. 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 4 in. (162.56 cm) (R); Pain 6/10; 05/28 01:17 BP 109 / 58; Pulse 76; Resp 16; Temp 97.8(O); Pulse Ox 100% on R/A; Pain 0/10; ead 05/27 22:12 Body Mass Index 26.78 (70.76 kg, 162.56 cm) gr2 MDM: 05/27 23:05 Heart Tones ordered. ck7 23:05 IV Saline Lock ordered. ck7 23:05 NS 0.9% 1000 ml IV at bolus once ordered. ck7 23:05 Metoclopramide 10 mg IV at 40 mg/hr once over 15 mins ordered. ck7 23:06 CBC with Diff Ordered. EDMS 23:06 MED Profile Ordered. EDMS 23:06 UA Ordered. EDMS 23:42 CBC with Diff Reviewed. ck7 23:43 US 1st trimester Ordered. EDMS 05/28 00:11 [facility] Payment Agreement was scanned into [employer] and attached to record. jp 00:11 Financial registration complete. jp5 00:20 MED Profile Reviewed. ck7 00:20 UA Reviewed. ck7 11: T-Sheet-- Draft Copy was scanned into [employer] and attached to record. gb Administered Medications: 05/27 23:34 Drug: NS 0.9% 1000 ml [sodium chloride 0.9 % injection solution] Route: IV; Rate: ead bolus; Site: right antecubital; 05/28 01:00 Follow up: IV Status: Completed infusion; IV Intake: 1000ml ead 05/27 23:34 Drug: Metoclopramide 10 mg [metoclopramide 5 mg/mL injection solution] Route: IV; Rate: ead 40 mg/hr; Infused Over: 15 mins; Site: right antecubital; 23:58 Follow up: Response: No Adverse Reaction; Pain is decreased; IV Status: Completed ead infusion Signatures: Dispatcher [employer] Quan Liriano, RN RN Zayda Benites, Reg Reg gb Krishna Sales, RPA-C RPA-Cck7 India SongRN Wale Chowdary jp5 The chart was reviewed and I authenticate all verbal orders and agree with the evaluation and treatment provided.Attachments: 05/28 00:11 [facility] Payment Agreement jp5 11:05 T-Sheet-- Draft Copy gb Chart Complete MTDD
== END 2016-05-28 01:19 | disposition home or self-care (01) ==
LOC: M ED 22:11
DX: O21.9 Vomiting of pregnancy, unspecified (principal); R51 Headache; Z3A.12 12 weeks gestation of pregnancy
CPT/HCPCS: 36415; 76801; 80048; 81001; 85025; 96361; 96365; 99284; J2765

== ENCOUNTER → 2016-09-26 | Outpatient (CLI) | payer OTHER | LOC: M LAB 12:13 | PROVIDERS: ATTEND Obstetrics & Gynecology | DX: Z34.82 Encounter for supervision of other normal pregnancy, second trimester (principal) ==

== ENCOUNTER 2016-12-08 11:12 | Outpatient (CLI) | payer OTHER ==
[~2016-12-08] VITALS: Ht 165.1 cm; Wt 89.0 kg
[2016-12-08 11:31] VITALS: BP 106/57
[2016-12-08] MEDS ORDERED: PRENTAB9 PO (11:38)
[2016-12-08 13:05] VITALS: BP 102/55
== END 2016-12-08 14:02 | disposition home or self-care (01) ==
LOC: M LDO 11:12
PROVIDERS: ATTEND Student in an Organized Health Care Education/Training Program
DX: O26.893 Other specified pregnancy related conditions, third trimester (principal); O09.33 Supervision of pregnancy with insufficient antenatal care, third trimester; Z3A.39 39 weeks gestation of pregnancy

== ENCOUNTER 2016-12-20 06:17 | Inpatient (IN) | payer OTHER ==
[~2016-12-20] VITALS: Ht 165.1 cm; Wt 85.0 kg
[2016-12-20] VITALS (29 sets, daily range): BP systolic 96–136; BP diastolic 53–75
[~2016-12-20 06:17] MED LIST: PRENTAB9 PO
[2016-12-20 07:16] LABS: MEAN CORPUSCULAR HEMOGLOBIN 31.5 pg (27.0-33.0); MEAN CORPUSCULAR HGB CONC 35.2 g/dl (32.0-36.5); MEAN CORPUSCULAR VOLUME 89.4 fl (80.0-96.0); RED CELL DISTRIBUTION WIDTH 13.2 % (11.5-14.5); WHITE BLOOD COUNT 10.8 K/mm3 (4.0-10.0)
[2016-12-20] MEDS ORDERED: LR 1,000 ML IV SCH (07:49)
[2016-12-20] MEDS ORDERED: OXYTOCIN DRIP 30 UNITS in APPROPRIATE DILUENT 1 EA IV SCH (08:00)
[2016-12-20] MEDS ORDERED: miSOPROStol 50 MCG 1/2 TAB (S0191) PO ONE (09:45)
[2016-12-20] MEDS: miSOPROStol 50 MCG 1/2 TAB (S0191) PO SCH ×2 (14:20→18:30)
[2016-12-20] MEDS ORDERED: FENTANYL 2MCG/ML ROPIVACAINE 0.2% IN 0.9% NACL 200ML IVBAG As Ordered ONE (20:00)
[2016-12-20] MEDS ORDERED: LACTATED RINGER'S 1000 ML IV PRN (21:45)
[2016-12-20] MEDS ORDERED: ONDANSETRON 4MG/2ML VIAL (J2405) IV PRN (21:45)
[2016-12-20] MEDS ORDERED: EPIDURAL/PCA KEYS XX PRN (21:45)
[2016-12-20] MEDS ORDERED: ePHEDrine SULFATE 25 MG/5 ML(5MG/ML) SYRINGE IV PRN (21:45)
[2016-12-20] MEDS ORDERED: NALOXONE INJ 0.4 MG/1 ML VIAL (J2310) IV PRN (21:45)
[2016-12-20] MEDS ORDERED: diphenhydrAMINE INJ 50MG/ML VIAL (J1200) IV PRN (21:45)
[2016-12-20] MEDS ORDERED: REFRIGERATOR IV KEYS XX PRN (21:45)
[2016-12-20] MEDS ORDERED: FENTANYL/ROPIVACAINE/NACL BAG 200 ML EPIDURAL SCH (21:45)
[2016-12-20] MEDS ORDERED: EPIDURAL COMMENT XX SCH (21:45)
[2016-12-20] MEDS ORDERED: DIBUCAINE 1% OINTMENT 30GM TOP PRN (22:15)
[2016-12-20] MEDS ORDERED: ANUSOL HC CREAM 30GM TOP PRN (22:15)
[2016-12-20] MEDS ORDERED: METHYLERGONOVINE MALEATE 0.2 MG TAB PO PRN (22:15)
[2016-12-20] MEDS ORDERED: RHOGAM 300 MCG (1500 IU) INJ (J2790) IM SCH (22:15)
[2016-12-20] MEDS ORDERED: DOCUSATE SODIUM 100 MG CAP PO PRN (22:15)
[2016-12-20] MEDS ORDERED: MOM 30ML SUSPENSION UDC PO PRN (22:15)
[2016-12-20] MEDS ORDERED: MEASLES,MUMPS,RUBELLA VACCINE INJ (MMR-II) (90707) SC SCH (22:15)
[2016-12-20] MEDS ORDERED: miSOPROStol 200 MCG TAB (S0191) PR ONE (22:30)
[2016-12-20 22:39] LABS: CORD GAS ABE V -6.2; CORD GAS HCO3 V 19.1 MEQ/L; CORD GAS O2 SAT V 64.9 %; CORD GAS PCO2 V 37.9 mmHg; CORD GAS PH V 7.321 UNITS; CORD GAS SBC V 18.7 MEQ/L; CORD GAS TCO2 V 20.3 MEQ/L
[2016-12-20 22:41] LABS: CORD GAS ABE A -6.9; CORD GAS HCO3 A 21.7 MEQ/L; CORD GAS O2 SAT A 29.7 %; CORD GAS PCO2 A 54.4 mmHg; CORD GAS PH A 7.218 UNITS; CORD GAS PO2 A 16.3 mmHg; CORD GAS SBC A 17.3 MEQ/L; CORD GAS TCO2 A 23.3 MEQ/L
[2016-12-21 00:45] VITALS: BP 118/58
[2016-12-21] MEDS ORDERED: OXYTOCIN INJ 10 UNITS/ML VIAL (J2590) As Ordered ONE (05:00)
[2016-12-21 06:00] VITALS: BP 108/54
[2016-12-21] MEDS: IBUPROFEN 800 MG TAB PO PRN ×2 (06:24→23:55)
[2016-12-21 06:34] LABS: MEAN CORPUSCULAR HGB CONC 36.3 g/dl (32.0-36.5); MEAN CORPUSCULAR VOLUME 88.2 fl (80.0-96.0); RED CELL DISTRIBUTION WIDTH 13.2 % (11.5-14.5); WHITE BLOOD COUNT 12.7 K/mm3 (4.0-10.0)
[2016-12-21] MEDS: PRENATAL VITAMINS CHEWABLE TABLET PO SCH (09:00)
--- NOTE | 2016-12-21 14:32 | DN ---
DATE: 12/20/2016 This lady is a 21-year-old 2, para 1 admitted for induction of labor at late term 41 weeks of gestation. She had two lots of Cytotec followed by an artificial rupture of membranes (AROM) draining clear fluid and augment with Pitocin. Epidural in place, delivered a live spontaneously over an intact perineum, a live male infant, 8 pounds, 4 ounces, 3706 grams. scores of 9 and 9 at one and five minutes respectfully. Arterial and venous pH were performed. The uterus contracted well under Pitocin. Examination of the vagina was normal. Cervix was normal. Rectal area and sphincter were intact. The patient and the baby tolerating the procedure well.
[2016-12-21] MEDS: ACETAMINOPHEN 500 MG TAB PO PRN ×2 (16:05→23:55)
[2016-12-21 18:00] VITALS: BP 117/61
[2016-12-21 21:29] VITALS: BP 117/61
[2016-12-22 05:44] VITALS: BP 95/55
[2016-12-22] MEDS ORDERED: COLA100C5 PO (07:54)
[2016-12-22] MEDS ORDERED: TYLE325T5 PO (07:54)
[2016-12-22] MEDS ORDERED: MOTR200T44 PO (07:54)
[2016-12-22] MEDS ORDERED: ADACEL/BOOSTRIX VACCINE (DIPHTH/PERTUSS/ACELL/TETANUS)0.5ML SYR (90715) IM ONE (09:00)
[2016-12-22] MEDS: PRENATAL VITAMINS CHEWABLE TABLET PO SCH (09:03)
[2016-12-22] MEDS: ACETAMINOPHEN 500 MG TAB PO PRN (09:05)
== END 2016-12-22 10:18 | disposition home or self-care (01) | DRG 775 ==
LOC: M LDI 06:17 → M OBS 12-21 00:19
PROVIDERS: ADMIT Student in an Organized Health Care Education/Training Program; ATTEND Obstetrics & Gynecology
PROC: 10E0XZZ Delivery of Products of Conception, External Approach (ICD-10-PCS; principal; 2016-12-20)
PROC: 10907ZC Drainage of Amniotic Fluid, Therapeutic from Products of Conception, Via Natural or Artificial Opening (ICD-10-PCS; 2016-12-20)
PROC: 3E0P7GC Introduction of Other Therapeutic Substance into Female Reproductive, Via Natural or Artificial Opening (ICD-10-PCS; 2016-12-20)
DX: O48.0 Post-term pregnancy (principal); Z3A.41 41 weeks gestation of pregnancy; Z37.0 Single live birth

== ENCOUNTER → 2017-06-30 | Outpatient (CLI) | payer OTHER ==
[~2017-06-30] MED LIST changes: +E-Z-GAS II EFFERVESCENT PACKET (SODIUM BICARB./CITRIC ACID/SIMETHICONE) As Ordered; +E-Z-PAQUE 96% w/w SUSP 176GM BTL As Ordered; -PRENTAB9 PO
== END ==
LOC: M RAD 08:59
DX: R13.10 Dysphagia, unspecified (principal)
CPT/HCPCS: 74220

== ENCOUNTER 2017-08-20 19:25 | Emergency (ER) | payer OTHER ==
[2017-08-20] MEDS: AUGMENTIN 875 MG TAB PO (21:45)
== END 2017-08-20 21:49 | disposition home or self-care (01) ==
LOC: M ED 19:25
DX: J02.0 Streptococcal pharyngitis (principal)
CPT/HCPCS: 87880

== ENCOUNTER 2017-09-13 21:51 | Emergency (ER) | payer OTHER ==
[2017-09-13] MEDS: LIDOCAINE 2% MDV 20 ML VIAL SC (22:15)
[2017-09-13] MEDS: ADACEL/BOOSTRIX VACCINE (DIPHTH/PERTUSS/ACELL/TETANUS)0.5ML SYR (90715) IM (22:15)
[2017-09-13] MEDS: NORCO, ANEXSIA 5/325MG TABLET (HYDROcodone/ACETAMINOPHEN) PO (22:15)
[2017-09-13] MEDS ORDERED: IBUPROFEN 800 MG TAB As Ordered (23:14)
[2017-09-13] MEDS: CEPHALEXIN 500 MG CAP PO (23:15)
[2017-09-13] MEDS: IBUPROFEN 800 MG TAB PO (23:25)
== END 2017-09-13 23:27 | disposition home or self-care (01) ==
LOC: M ED 21:51
DX: S62.665B Nondisplaced fracture of distal phalanx of left ring finger, initial encounter for open fracture (principal); S61.315A Laceration without foreign body of left ring finger with damage to nail, initial encounter; S60.142A Contusion of left ring finger with damage to nail, initial encounter; W23.0XXA Caught, crushed, jammed, or pinched between moving objects, initial encounter; Y92.099 Unspecified place in other non-institutional residence as the place of occurrence of the external cause; Y93.9 Activity, unspecified; Y99.9 Unspecified external cause status; Z79.899 Other long term (current) drug therapy
CPT/HCPCS: 90715

== ENCOUNTER 2018-01-13 13:34 | Emergency (ER) | payer OTHER | END 2018-01-13 17:24 | disposition home or self-care (01) | LOC: M ED 13:34 | DX: J02.9 Acute pharyngitis, unspecified (principal) | CPT/HCPCS: 87880 ==

== ENCOUNTER 2018-04-20 10:31 | Day surgery (SDC) | payer OTHER ==
[~2018-04-20 10:31] MED LIST changes: -E-Z-GAS II EFFERVESCENT PACKET (SODIUM BICARB./CITRIC ACID/SIMETHICONE) As Ordered; -E-Z-PAQUE 96% w/w SUSP 176GM BTL As Ordered; +LIDOCAINE 1% MDV 20ML VIAL SQ; +LR 1,000 ML IV
[2018-04-20 11:02] LABS: HEMATOCRIT 42.3 % (36.0-47.0); HEMOGLOBIN 14.6 g/dl (12.0-15.5); MEAN CORPUSCULAR HEMOGLOBIN 30.2 pg (27.0-33.0); MEAN CORPUSCULAR HGB CONC 34.5 g/dl (32.0-36.5); MEAN CORPUSCULAR VOLUME 87.4 fl (80.0-96.0); PLATELET COUNT, AUTOMATED 280 10^3/uL (150-450); RED BLOOD COUNT 4.84 10^6/uL (4.00-5.40); RED CELL DISTRIBUTION WIDTH 11.4 % (11.5-14.5); WHITE BLOOD COUNT 5.6 10^3/uL (4.0-10.0)
[2018-04-20 11:26] LABS: ANION GAP 8 MEQ/L (8-16); BLOOD UREA NITROGEN 19 MG/DL (7-18); CALCIUM LEVEL 8.6 MG/DL (8.5-10.1); CARBON DIOXIDE LEVEL 25 MEQ/L (21-32); CHLORIDE LEVEL 109 MEQ/L (98-107); GLOMERULAR FILTRATION RATE > 60.0 (>60); GLUCOSE, FASTING 86 MG/DL (70-100); HCG, SERUM QUANTITATIVE < 1.0 MIU/ML; POTASSIUM SERUM 4.2 MEQ/L (3.5-5.1); SODIUM LEVEL 142 MEQ/L (136-145)
[2018-04-20] MEDS ORDERED: PROPOFOL 200 MG/20 ML VIAL As Ordered (12:59)
[2018-04-20] MEDS ORDERED: ROCURONIUM BROMIDE 50 MG/5 ML VIAL As Ordered (12:59)
[2018-04-20] MEDS ORDERED: KETOROLAC 60 MG/2 ML VIAL (J1885) As Ordered (12:59)
[2018-04-20] MEDS ORDERED: fentaNYL 100 MCG/2 ML INJECTION (J3010) As Ordered (12:59)
[2018-04-20] MEDS ORDERED: LIDOCAINE 2% INJ 100 MG/5 ML SDV (FOR ANES.) As Ordered (12:59)
[2018-04-20] MEDS ORDERED: ONDANSETRON 4MG/2ML VIAL (J2405) As Ordered (12:59)
[2018-04-20] MEDS ORDERED: MIDAZOLAM INJ 2 MG/2 ML VIAL (J2250) As Ordered (12:59)
[2018-04-20] MEDS ORDERED: dexameTHASONE 4 MG/ML 1ML VIAL (J1100) As Ordered (12:59)
[2018-04-20] MEDS ORDERED: NEOSTIGMINE 10 MG/10 ML VIAL (J2710) As Ordered (13:05)
[2018-04-20] MEDS ORDERED: GLYCOPYRROLATE INJ 0.2 MG/ML 2 ML VIAL As Ordered (13:05)
[2018-04-20] MEDS ORDERED: HYDROmorphone HCL 2 MG/ML 1ML VIAL (J1170) As Ordered (13:06)
[2018-04-20] MEDS: ceFAZolin SOD 1 GM in D5W MINI-BAG PLUS 50 ML IV (14:20)
[2018-04-20] MEDS: ACETAMINOPHEN 650 MG SUPP As Ordered (14:25)
[2018-04-20] MEDS: BUPIVACAINE HCL 0.5% 10 ML VIAL As Ordered (14:30)
[2018-04-20] MEDS ORDERED: LR 1,000 ML IV (15:45)
[2018-04-20] MEDS ORDERED: ONDANSETRON 4MG/2ML VIAL (J2405) IV (15:45)
[2018-04-20] MEDS ORDERED: MEPERIDINE INJ 25 MG/ML VIAL (J2175) IV (15:45)
[2018-04-20] MEDS ORDERED: METOCLOPRAMIDE INJ 10MG/2ML VIAL (J2765) IV (15:45)
[2018-04-20] MEDS ORDERED: PERCOCET 5MG/325MG TAB PO (15:45)
[2018-04-20] MEDS ORDERED: fentaNYL 100 MCG/2 ML INJECTION (J3010) IV (15:45)
[2018-04-20] MEDS ORDERED: KETOROLAC 30 MG/ML VIAL (J1885) IV (19:00)
== END 2018-04-20 17:34 | disposition home or self-care (01) ==
LOC: M SDC 10:31
DX: Z30.2 Encounter for sterilization (principal); N99.71 Accidental puncture and laceration of a genitourinary system organ or structure during a genitourinary system procedure
CPT/HCPCS: 58671

== ENCOUNTER 2018-05-26 13:58 | Emergency (ER) | payer OTHER ==
[~2018-05-26] VITALS: Ht 162.6 cm; Wt 66.4 kg
[~2018-05-26 13:58] MED LIST changes: +AUGM875T28 PO; +COLA100C5 PO; +IBUP-1022 PO; +IBUP80TA PO; +KEFL500C17 PO; -LIDOCAINE 1% MDV 20ML VIAL SQ; -LR 1,000 ML IV; +MAGICMW MT; +MOTR200T44 PO; +PRENTAB9 PO; +TYLE325T5 PO; +VITA-122 PO
[2018-05-26 16:23] VITALS: BP 114/74
[2018-05-26 16:56] LABS: CHLAMYDIA DNA AMPLIFICATION NEGATIVE (NEGATIVE); GC DNA AMPLIFICATION NEGATIVE (NEGATIVE)
== END 2018-05-26 16:24 | disposition home or self-care (01) ==
LOC: M ED 13:58
DX: N94.10 Unspecified dyspareunia (principal); R10.2 Pelvic and perineal pain; Z98.890 Other specified postprocedural states; Z98.51 Tubal ligation status

== ENCOUNTER 2018-10-19 09:26 | Emergency (ER) | payer OTHER ==
[~2018-10-19] VITALS: Ht 162.6 cm; Wt 70.5 kg
[2018-10-19] MEDS ORDERED: KEFL500C17 PO (10:42)
[2018-10-19] MEDS ORDERED: IBUP-1022 PO (10:42)
[2018-10-19 10:48] VITALS: BP 122/83
== END 2018-10-19 11:26 | disposition home or self-care (01) ==
LOC: M ED 09:26
DX: J03.90 Acute tonsillitis, unspecified (principal); Z72.51 High risk heterosexual behavior; R30.0 Dysuria
CPT/HCPCS: 81002; 81025; 87070; 87086; 87661; 87880; 99284; G0463

== ENCOUNTER → 2018-10-19 | Outpatient (REF) | payer OTHER ==
[2018-10-20 15:20] LABS: CHLAMYDIA DNA AMPLIFICATION NEGATIVE (NEGATIVE); GC DNA AMPLIFICATION NEGATIVE (NEGATIVE)
== END ==
LOC: M SFHCLERA 20:00
PROVIDERS: ATTEND Nurse Practitioner Family
DX: Z72.51 High risk heterosexual behavior (principal); R30.0 Dysuria

== ENCOUNTER → 2018-10-22 | Outpatient (REF) | payer OTHER | LOC: M SFHCLERA 11:40 | PROVIDERS: ATTEND Physician Assistant | DX: N89.8 Other specified noninflammatory disorders of vagina (principal) | CPT/HCPCS: 87070; G0463 ==

== ENCOUNTER → 2019-01-03 | Outpatient (REF) | payer OTHER ==
[2019-01-03 22:17] LABS: CHLAMYDIA DNA AMPLIFICATION NEGATIVE (NEGATIVE); GC DNA AMPLIFICATION NEGATIVE (NEGATIVE)
== END ==
LOC: M SFHCLERA 15:32
PROVIDERS: ATTEND Nurse Practitioner Family
DX: R82.90 Unspecified abnormal findings in urine (principal)